=== PATIENT | female | born 1980 | race Caucasian/White ===

== ENCOUNTER 2016-04-15 06:28 | Inpatient (IN) | payer BC ==
[2016-04-15] VITALS (28 sets, daily range): BP systolic 108–145; BP diastolic 56–83; PULSE 79–107; TEMP 97.5–98
[~2016-04-15] VITALS: Ht 170.2 cm; Wt 91.8 kg
[~2016-04-15 06:28] MED LIST: COLACE 100100 MG/CAP PO; MOTRIN 600600 MG/TAB PO; PERCOCET 325 MG1 TA2 PO; PRENATAL MVI
[2016-04-15] MEDS ORDERED: GLUCOPHAGE500 MG/TAB PO (06:54)
[2016-04-15] MEDS ORDERED: PRENATAL (06:55)
[2016-04-15] MEDS ORDERED: LANTUS SOLOS100 U/ML SQ (06:55)
[2016-04-15] MEDS ORDERED: TYLENOL 500MG500 MG (06:56)
[2016-04-15 07:57] LABS: BASO % 0.2 % (0.0-2.0); EOS # 0.1 (0.0-0.7); EOS % 1.3 % (0-4.0); GRAN # 6.2 (1.4-6.5); GRAN % 71.2 % (42.2-75.2); HEMATOCRIT 37.1 % (37.0-47.0); HEMOGLOBIN 12.6 g/dl (12.5-16.0); LYMPH # 1.8 (1.2-3.4); LYMPH % 20.7 % (20.0-51.0); MEAN CELL VOLUME 88 fl (80.0-100.0); MEAN CORPUSCULAR HEMOGLOBIN 30 pg (27.0-31.0); MEAN CORPUSCULAR HGB CONC 34 g/dl (33.0-37.0); MEAN PLATELET VOLUME 9.8 fl (7.4-10.4); MONO # 0.5 (0.1-0.6); MONO % 5.9 % (1.7-9.3); PLATELET COUNT 169 K/mm3 (130-400); RED BLOOD COUNT 4.23 M/mm3 (4.10-5.30); REDCELL DISTRIBUTION WIDTH-CV 13.9 % (11.5-14.5); WHITE BLOOD COUNT 8.7 K/mm3 (4.8-10.8)
[2016-04-15] MEDS ORDERED: LEVEMIR100 U/ML SQ (08:06)
[2016-04-15] MEDS ORDERED: COLACE 100100 MG/CAP PO (08:07)
[2016-04-16 03:30] VITALS: BP 124/74; PULSE 84; TEMP 97.3
[2016-04-16 08:15] VITALS: BP 121/68; PULSE 83; TEMP 97.7
[2016-04-16] MEDS ORDERED: IBU600 MG PO (08:58)
[2016-04-16] MEDS ORDERED: PERCOCET 325 MG1 TA2 PO (08:58)
[2016-04-16 15:59] VITALS: BP 112/72; PULSE 72; TEMP 97.6
[2016-04-16 19:15] VITALS: BP 101/67; PULSE 79; TEMP 97.7
[2016-04-17 07:57] VITALS: BP 125/79; PULSE 78; TEMP 97.7
== END 2016-04-17 13:55 | disposition home or self-care (01) | DRG 775 ==
LOC: LDR 06:28 → OB 15:00
PROVIDERS: Obstetrics & Gynecology
PROC: 10E0XZZ Delivery of Products of Conception, External Approach (ICD-10-PCS; principal; 2016-04-15)
PROC: 0KQM0ZZ Repair Perineum Muscle, Open Approach (ICD-10-PCS; 2016-04-15)
PROC: 3E033VJ Introduction of Other Hormone into Peripheral Vein, Percutaneous Approach (ICD-10-PCS; 2016-04-15)
DX: O24.424 Gestational diabetes mellitus in childbirth, insulin controlled (principal); O99.824 Streptococcus B carrier state complicating childbirth; O69.81X0 Labor and delivery complicated by cord around neck, without compression, not applicable or unspecified; O70.1 Second degree perineal laceration during delivery; O76 Abnormality in fetal heart rate and rhythm complicating labor and delivery; Z37.0 Single live birth; Z3A.39 39 weeks gestation of pregnancy
CPT/HCPCS: J2405; J2540; J2590; J7120

== ENCOUNTER → 2018-11-16 | Outpatient (CLI) | payer BC ==
[~2018-11-16] MED LIST changes: +GLUCOPHAGE500 MG/TAB PO; +IBU600 MG PO; +LANTUS SOLOS100 U/ML SQ; +LEVEMIR100 U/ML SQ; +PRENATAL; +TYLENOL 500MG500 MG
== END ==
LOC: MC.RAD 12:58
DX: N63.20 Unspecified lump in the left breast, unspecified quadrant (principal)
CPT/HCPCS: G0279

== ENCOUNTER → 2021-04-01 | Outpatient (CLI) | payer BC | LOC: MC.RAD 10:30 | DX: Z12.31 Encounter for screening mammogram for malignant neoplasm of breast (principal) ==

== ENCOUNTER → 2022-07-20 | Outpatient (CLI) | payer BC | LOC: MC.RAD 09:00 | DX: R92.8 Other abnormal and inconclusive findings on diagnostic imaging of breast (principal) ==